=== PATIENT | male | born 1955 | race Caucasian/White ===

== ENCOUNTER 2020-06-29 14:46 | Emergency (ER) | payer MEDICARE, MEDICAID ==
[~2020-06-29] VITALS: Ht 172.7 cm; Wt 71.8 kg
[~2020-06-29 14:46] MED LIST: IBUP-1984 PO; METO-384 PO; MORP30CA16 PO; PER10325T PO
[2020-06-29] MEDS ORDERED: TETanus/Pertussis (Acell)/Diphther VAC/PF (Tdap-Adult) 0.5ml syringe IMVAC ONE (15:10)
[2020-06-29] MEDS ORDERED: LIDOcaine 1% W/epiNEPHrine 1:200,000 10ml vial IJ ONE (15:10)
[2020-06-29] MEDS ORDERED: HYDR-4353 PO (16:15)
[2020-06-29 17:10] VITALS: BP 120/98
== END 2020-06-29 17:13 | disposition home or self-care (01) ==
LOC: ER 14:47
DX: S01.01XA Laceration without foreign body of scalp, initial encounter (principal); S09.90XA Unspecified injury of head, initial encounter; M54.2 Cervicalgia; M25.552 Pain in left hip; M79.645 Pain in left finger(s); I10 Essential (primary) hypertension; Z88.8 Allergy status to other drugs, medicaments and biological substances; Z79.899 Other long term (current) drug therapy; W19.XXXA Unspecified fall, initial encounter; Y93.89 Activity, other specified; Y92.89 Other specified places as the place of occurrence of the external cause; Y99.8 Other external cause status
CPT/HCPCS: 12013; 70450; 72125; 73140; 73502; 90471; 90715; 99285